=== PATIENT | male | born 1945 | race Caucasian/White ===

== ENCOUNTER 2023-06-03 06:55 | Emergency (ER) | payer MEDICARE, OTHER ==
[~2023-06-03] VITALS: Ht 160 cm; Wt 77.6 kg
[2023-06-03 07:24] VITALS: BP 184/72; PULSE 56; RESP 18; TEMP 98; O2SAT 99
[2023-06-03] MEDS ORDERED: MECLIZINE 25 MG TAB PO ONE (07:50)
[2023-06-03 10:13] LABS: BASOPHILS % (AUTO) 0.5 % (0.0-2.0); EOSINOPHILS # (AUTO) 0.1 K/uL (0-0.4); EOSINOPHILS % (AUTO) 1.1 % (0.0-4.0); HEMATOCRIT 36.9 % (36-52); HEMOGLOBIN 12.4 g/dL (12.0-18.0); LYMPHOCYTES # (AUTO) 1.5 K/uL (2.0-11.5); LYMPHOCYTES % (AUTO) 24.3 % (20.5-51.1); MEAN CORPUSCULAR HEMOGLOBIN 28 pg (27-31); MEAN CORPUSCULAR HGB CONC 34 g/dL (33-37); MEAN CORPUSCULAR VOLUME 84.6 fL (80-94); MONOCYTES # (AUTO) 0.4 K/uL (0.8-1.0); MONOCYTES % (AUTO) 6.5 % (1.7-9.3); NEUTROPHILS # (AUTO) 4.1 K/uL (1.8-7.7); NEUTROPHILS % (AUTO) 67.6 % (42.2-75.2); PLATELET COUNT (AUTO) 266 K/uL (140-450); RED BLOOD CELL COUNT(AUTO) 4.37 MIL/uL (4.20-6.10); RED CELL DISTRIBUTION WIDTH 13.8 % (11.6-13.7); WHITE BLOOD COUNT (AUTO) 6.1 K/uL (4.8-10.8)
[2023-06-03 10:32] LABS: INR 0.99 (0.8-1.2); PARTIAL THROMBOPLASTIN TIME 27.9 secs (22-35.6); PROTHROMBIN TIME 10.4 secs (10.8-13.4)
[2023-06-03 10:33] LABS: ALANINE AMINOTRANSFERASE 24 U/L (12-78); ALBUMIN 3.6 g/dL (3.4-5.0); ALKALINE PHOSPHATASE 88 U/L (50-136); ANION GAP 10.3 (8-16); ASPARTATE AMINOTRANSFERASE 17 U/L (15-37); CALCIUM 9.2 mg/dL (8.5-10.1); CARBON DIOXIDE 29.2 mmol/L (21-32); CHLORIDE 102 mmol/L (98-107); GLUCOSE 141 mg/dL (74-106); POTASSIUM 4.5 mmol/L (3.5-5.1); SODIUM SERUM 137 mmol/L (136-145); TOTAL BILIRUBIN 0.5 mg/dL (0.0-1.0); TOTAL PROTEIN, SERUM 6.8 g/dL (6.4-8.2); UREA NITROGEN, BLOOD 19 mg/dL (7-18)
[2023-06-03 11:20] VITALS: BP 133/61; PULSE 48; RESP 18; TEMP 97.7; O2SAT 97
== END 2023-06-03 11:20 | disposition home or self-care (01) ==
LOC: MED 06:55
DX: I10 Essential (primary) hypertension (principal); R42 Dizziness and giddiness; E11.9 Type 2 diabetes mellitus without complications
CPT/HCPCS: 36415; 70450; 80053; 83880; 84484; 85025; 85610; 85730; 93005; 99285; J8597

== ENCOUNTER 2023-06-08 11:37 | Observation (INO) | payer MEDICARE, OTHER ==
[~2023-06-08] VITALS: Ht 162.6 cm; Wt 99.8 kg
[2023-06-08 11:42] VITALS: BP 160/77; PULSE 57; RESP 18; TEMP 98.7; O2SAT 98
[2023-06-08 12:05] LABS: BASOPHILS % (AUTO) 0.6 % (0.0-2.0); EOSINOPHILS # (AUTO) 0.1 K/uL (0-0.4); EOSINOPHILS % (AUTO) 1.2 % (0.0-4.0); HEMATOCRIT 40.5 % (36-52); HEMOGLOBIN 13.4 g/dL (12.0-18.0); LYMPHOCYTES # (AUTO) 1.5 K/uL (2.0-11.5); MEAN CORPUSCULAR HEMOGLOBIN 28 pg (27-31); MEAN CORPUSCULAR HGB CONC 33 g/dL (33-37); MEAN CORPUSCULAR VOLUME 85.7 fL (80-94); MONOCYTES # (AUTO) 0.4 K/uL (0.8-1.0); MONOCYTES % (AUTO) 5.7 % (1.7-9.3); NEUTROPHILS # (AUTO) 5.2 K/uL (1.8-7.7); NEUTROPHILS % (AUTO) 71.5 % (42.2-75.2); PLATELET COUNT (AUTO) 302 K/uL (140-450); RED BLOOD CELL COUNT(AUTO) 4.72 MIL/uL (4.20-6.10); RED CELL DISTRIBUTION WIDTH 13.7 % (11.6-13.7); WHITE BLOOD COUNT (AUTO) 7.3 K/uL (4.8-10.8)
[2023-06-08] MEDS ORDERED: ASPIRIN 325 MG TAB PO ONE (12:25)
[2023-06-08 12:29] LABS: ALANINE AMINOTRANSFERASE 26 U/L (12-78); ALBUMIN 3.9 g/dL (3.4-5.0); ALKALINE PHOSPHATASE 98 U/L (50-136); ANION GAP 12.1 (8-16); ASPARTATE AMINOTRANSFERASE 17 U/L (15-37); CALCIUM 9.3 mg/dL (8.5-10.1); CARBON DIOXIDE 27.7 mmol/L (21-32); CHLORIDE 100 mmol/L (98-107); CREATININE 1.1 mg/dL (0.6-1.3); GLUCOSE 175 mg/dL (74-106); POTASSIUM 3.8 mmol/L (3.5-5.1); SODIUM SERUM 136 mmol/L (136-145); TOTAL BILIRUBIN 0.7 mg/dL (0.0-1.0); TOTAL PROTEIN, SERUM 7.3 g/dL (6.4-8.2); UREA NITROGEN, BLOOD 25 mg/dL (7-18)
[2023-06-08] MEDS ORDERED: ACETAMINOPHEN 325 MG TAB PO PRN (13:15)
[2023-06-08] MEDS ORDERED: MORPHINE SULFATE 4 MG/ML SYR IVP PRN (13:15)
[2023-06-08] MEDS ORDERED: HYDROcodone/APAP 5/325 MG 1 TAB TAB PO PRN (13:15)
[2023-06-08] MEDS ORDERED: ONDANSETRON 4 MG/2 ML VIAL IVP PRN (13:15)
[2023-06-08 15:20] VITALS: BP 147/64; PULSE 56; PULSE 71; RESP 18; TEMP 96.7; O2SAT 98
[2023-06-08 16:00] VITALS: PULSE 54; RESP 18; O2SAT 98
[2023-06-08 20:00] VITALS: BP 147/73; PULSE 57; PULSE 58; RESP 17; TEMP 97.4; O2SAT 97
[2023-06-09] VITALS: BP 167/65; PULSE 61; PULSE 64; RESP 17; TEMP 97.7; O2SAT 98
[2023-06-09 04:00] VITALS: BP 168/60; PULSE 54; PULSE 55; RESP 19; TEMP 97.7; O2SAT 97
[2023-06-09] MEDS ORDERED: hydrALAZINE 25 MG TAB PO PRN ×2 (04:45→11:32)
[2023-06-09 05:29] LABS: BASOPHILS % (AUTO) 0.6 % (0.0-2.0); EOSINOPHILS # (AUTO) 0.1 K/uL (0-0.4); EOSINOPHILS % (AUTO) 1.8 % (0.0-4.0); HEMATOCRIT 36.8 % (36-52); HEMOGLOBIN 12.4 g/dL (12.0-18.0); LYMPHOCYTES # (AUTO) 1.9 K/uL (2.0-11.5); LYMPHOCYTES % (AUTO) 29.5 % (20.5-51.1); MEAN CORPUSCULAR HEMOGLOBIN 29 pg (27-31); MEAN CORPUSCULAR HGB CONC 34 g/dL (33-37); MEAN CORPUSCULAR VOLUME 84.7 fL (80-94); MONOCYTES # (AUTO) 0.5 K/uL (0.8-1.0); NEUTROPHILS # (AUTO) 3.8 K/uL (1.8-7.7); NEUTROPHILS % (AUTO) 60.1 % (42.2-75.2); PLATELET COUNT (AUTO) 274 K/uL (140-450); RED BLOOD CELL COUNT(AUTO) 4.35 MIL/uL (4.20-6.10); RED CELL DISTRIBUTION WIDTH 13.8 % (11.6-13.7); WHITE BLOOD COUNT (AUTO) 6.3 K/uL (4.8-10.8)
[2023-06-09 05:49] LABS: ANION GAP 11.8 (8-16); CALCIUM 8.7 mg/dL (8.5-10.1); CARBON DIOXIDE 26.7 mmol/L (21-32); CHLORIDE 104 mmol/L (98-107); GLUCOSE 135 mg/dL (74-106); POTASSIUM 3.5 mmol/L (3.5-5.1); SODIUM SERUM 139 mmol/L (136-145); UREA NITROGEN, BLOOD 23 mg/dL (7-18)
[2023-06-09 08:00] VITALS: BP 196/82; PULSE 48; PULSE 60; RESP 16; TEMP 97.6; O2SAT 97
[2023-06-09] MEDS ORDERED: LOSARTAN 50 MG TAB PO SCH (11:30)
[2023-06-09 12:00] VITALS: BP 161/74; PULSE 97; RESP 18; TEMP 97.8; O2SAT 97
[2023-06-09] MEDS ORDERED: INSULIN LISPRO SLIDING SCALE 100 UNITS/ML VIAL SUBQ PRN (12:20)
[2023-06-09] MEDS ORDERED: DEXTROSE 50% 50 ML SYR IVP PRN (12:20)
[2023-06-09] MEDS: hydrALAZINE 25 MG TAB PO SCH ×2 (12:26→12:31)
[2023-06-09] MEDS: INSULIN LANTUS 100 UNITS/ML 10 ML VIAL SUBQ SCH (12:28)
[2023-06-09] MEDS ORDERED: METF1TAB5 PO (12:51)
[2023-06-09] MEDS ORDERED: ASPI-1129 PO (12:51)
[2023-06-09] MEDS ORDERED: ATEN100T2 PO (12:54)
[2023-06-09] MEDS ORDERED: NIFEdipine 90 MG TABER PO SCH (14:34)
[2023-06-09 16:00] VITALS: BP 165/75; PULSE 68; PULSE 97; RESP 18; TEMP 97.8; O2SAT 96
[2023-06-09] MEDS: BLOOD GLUCOSE MONITORING 1 DEV DEV FS SCH ×2 (16:30→20:18)
[2023-06-09 20:00] VITALS: BP_SYST 137; BP_SYST 172; BP_DIAS 57; BP_DIAS 75; PULSE 60; PULSE 64; PULSE 75; RESP 16; RESP 18; TEMP 98.4; O2SAT 100; O2SAT 96; O2SAT 98
[2023-06-09] MEDS: LOSARTAN 50 MG TAB PO SCH (20:18)
[2023-06-09] MEDS: metFORMIN 500 MG TAB PO SCH (20:23)
[2023-06-09] MEDS ORDERED: JANUMET PO SCH (21:00)
[2023-06-10] VITALS: BP 137/57; PULSE 73; PULSE 75; RESP 16; TEMP 98.4; O2SAT 98
[2023-06-10 04:00] VITALS: BP 122/70; PULSE 107; PULSE 80; RESP 16; TEMP 98.2; O2SAT 99
[2023-06-10] MEDS: BLOOD GLUCOSE MONITORING 1 DEV DEV FS SCH ×2 (06:44→11:30)
[2023-06-10 07:30] LABS: BASOPHILS % (AUTO) 0.6 % (0.0-2.0); EOSINOPHILS # (AUTO) 0.1 K/uL (0-0.4); EOSINOPHILS % (AUTO) 1.3 % (0.0-4.0); HEMATOCRIT 38.7 % (36-52); LYMPHOCYTES # (AUTO) 1.7 K/uL (2.0-11.5); MEAN CORPUSCULAR HEMOGLOBIN 29 pg (27-31); MEAN CORPUSCULAR HGB CONC 34 g/dL (33-37); MEAN CORPUSCULAR VOLUME 85.2 fL (80-94); MONOCYTES # (AUTO) 0.5 K/uL (0.8-1.0); MONOCYTES % (AUTO) 6.9 % (1.7-9.3); NEUTROPHILS # (AUTO) 4.9 K/uL (1.8-7.7); NEUTROPHILS % (AUTO) 67.2 % (42.2-75.2); PLATELET COUNT (AUTO) 275 K/uL (140-450); RED BLOOD CELL COUNT(AUTO) 4.54 MIL/uL (4.20-6.10); WHITE BLOOD COUNT (AUTO) 7.2 K/uL (4.8-10.8)
[2023-06-10 07:51] LABS: CALCIUM 9.4 mg/dL (8.5-10.1); CHLORIDE 106 mmol/L (98-107); GLUCOSE 132 mg/dL (74-106); POTASSIUM 3.5 mmol/L (3.5-5.1); SODIUM SERUM 140 mmol/L (136-145); UREA NITROGEN, BLOOD 21 mg/dL (7-18)
[2023-06-10 07:54] LABS: CARBON DIOXIDE 25.5 mmol/L (21-32)
[2023-06-10 08:00] VITALS: BP 138/68; PULSE 60; PULSE 86; PULSE 90; RESP 18; TEMP 97.2; O2SAT 97
[2023-06-10] MEDS ORDERED: ATORVASTATIN 20 MG TAB PO SCH (09:00)
[2023-06-10] MEDS ORDERED: ECOTRIN 81 MG TABEC PO SCH (09:00)
[2023-06-10] MEDS ORDERED: NIFEdipine 90 MG TABER PO SCH (09:00)
[2023-06-10] MEDS: INSULIN LANTUS 100 UNITS/ML 10 ML VIAL SUBQ SCH (09:00)
[2023-06-10] MEDS: LOSARTAN 50 MG TAB PO SCH (09:12)
[2023-06-10] MEDS: metFORMIN 500 MG TAB PO SCH (09:12)
[2023-06-10 12:00] VITALS: BP 147/71; PULSE 101; PULSE 84; RESP 18; TEMP 96.9; O2SAT 99
[2023-06-10] MEDS ORDERED: LOSA-270 PO (13:14)
[2023-06-10] MEDS ORDERED: NIFE90TE63 PO (13:14)
[2023-06-10] MEDS ORDERED: ATOR20TA40 PO (13:14)
[2023-06-10 14:51] VITALS: BP 147/71; PULSE 101; RESP 18; TEMP 96.9
== END 2023-06-10 16:40 | disposition home or self-care (01) ==
LOC: MED 11:37 → MTU 13:14 → MMU 14:25
PROVIDERS: ADMIT Student in an Organized Health Care Education/Training Program; ATTEND Student in an Organized Health Care Education/Training Program
DX: R07.89 Other chest pain (principal); I16.0 Hypertensive urgency; E78.5 Hyperlipidemia, unspecified; I12.9 Hypertensive chronic kidney disease with stage 1 through stage 4 chronic kidney disease, or unspecified chronic kidney disease; E11.22 Type 2 diabetes mellitus with diabetic chronic kidney disease; N18.9 Chronic kidney disease, unspecified; E78.00 Pure hypercholesterolemia, unspecified; M19.90 Unspecified osteoarthritis, unspecified site; Z79.899 Other long term (current) drug therapy
CPT/HCPCS: 36415; 71045; 80048; 80053; 82948; 83880; 84484; 85025; 87081; 96372; 99284; C8929; G0378; J1644; J1815